=== PATIENT | female | born 1970 | race Caucasian/White ===

== ENCOUNTER 2019-02-02 05:52 | Day surgery (SDC) | payer OTHER ==
[~2019-02-02 05:52] MED LIST: FERROUSSULFATE PO; GEMFIBROZIL600 MG PO
[2019-02-02] MEDS ORDERED: IBU400 MG PO (12:33)
== END 2019-02-02 15:20 | disposition home or self-care (01) ==
LOC: CIR.AMB 05:52
DX: D25.0 Submucous leiomyoma of uterus (principal)

== ENCOUNTER 2025-03-29 06:44 | Day surgery (SDC) | payer OTHER ==
[2025-03-22 12:19] VITALS: BP 131/84
[~2025-03-29] VITALS: Ht 154.9 cm; Wt 63.5 kg
[~2025-03-29 06:44] MED LIST changes: +IBU400 MG PO; +LIPITOR20 MG
[2025-03-29] MEDS ORDERED: POVIDONE-IODINE 118 ML BOTT TOP ONE (09:15)
[2025-03-29] MEDS ORDERED: IBU800 MG PO (10:09)
[2025-03-29] MEDS ORDERED: NEURONTIN300 MG PO (10:10)
== END 2025-03-29 12:15 | disposition home or self-care (01) ==
LOC: CIR.AMB 06:44
PROVIDERS: ATTEND Obstetrics & Gynecology Gynecology
DX: D27.0 Benign neoplasm of right ovary (principal); D27.1 Benign neoplasm of left ovary